=== PATIENT | male | born 2000 | race African-American/Black ===

== ENCOUNTER 2020-09-26 12:22 | Emergency (ER) | payer SELFPAY ==
--- NOTE | 2020-09-26 13:03 | RAD ---
RIGHT SHOULDER 3 VIEWS: Date: 09/26/2020 HISTORY: Right shoulder pain. FINDINGS/IMPRESSION: No acute fracture or dislocation is seen. POS: [facility]
--- NOTE | 2020-09-26 13:41 | RAD ---
EXAM: CHEST TWO VIEWS 09/26/2020 1:38 PM HISTORY: Concern for pneumothorax COMPARISON: None. FINDINGS: Lungs: The lungs are hyperinflated but clear. Heart: Normal in size and contour. Pulmonary Vessels: Normal. Costophrenic Angles: Clear. Pneumothorax: None. Osseous Structures: There is thoracolumbar scoliosis. No acute fracture or subluxation demonstrated. Additional Findings: None. IMPRESSION: No significant acute intrathoracic disease.
== END 2020-09-26 14:11 | disposition home or self-care (01) ==
LOC: ERS 12:22
DX: S46.911A Strain of unspecified muscle, fascia and tendon at shoulder and upper arm level, right arm, initial encounter (principal); X50.1XXA Overexertion from prolonged static or awkward postures, initial encounter
CPT/HCPCS: 71046

== ENCOUNTER 2024-09-20 14:43 | Emergency (ER) | payer BC ==
[2024-09-20] MEDS ORDERED: Acetaminophen 500 MG TAB ONE (15:24)
[2024-09-20] MEDS ORDERED: Ibuprofen 200 MG TAB ONE (15:25)
== END 2024-09-20 15:50 | disposition home or self-care (01) ==
LOC: ERS 14:43
DX: J10.1 Influenza due to other identified influenza virus with other respiratory manifestations (principal)
CPT/HCPCS: 87081; 87428; 87430; 99283